=== PATIENT | male | born 1965 | race Caucasian/White ===

== ENCOUNTER → 2021-06-15 | Outpatient (CLI) | payer OTHER ==
[~2021-06-15] MED LIST: IOHEXOL 300 MG/ML 75 ML VIAL. ONE
[2021-06-15] MEDS: IOHEXOL 300 MG/ML 75 ML VIAL. IV ONE (10:07)
--- NOTE | 2021-06-15 10:50 | RAD ---
INDICATION: Reason: GROSS HEMATURIA / Spl. Instructions: / History: COMPARISON: None. TECHNIQUE: Axial CT images were obtained through the abdomen and pelvis with and without intravenous contrast. One or more of the following individualized dose reduction techniques were utilized for this examinat ion: 1. Automated exposure control; 2. Adjustment of the mA and/or kV according to patient size; 3 . Use of iterative reconstruction technique. FINDINGS: Fat-containing inguinal hernias. Vascular: Calcific atherosclerosis. Hepatobiliary: Liver is low density which can be seen with fatty infiltration. Pancreas: No peripancreatic edema. Spleen: Spleen unremarkable. Renal/Bladder: No hydronephrosis. Lobulated renal contour. Tiny bilateral renal stones measuring up t o 2 mm on the right. No radiopaque obstructive ureter stone. Right-sided the urinary bladder there is a filling defect identified along the wall measuring 15 x 9 mm. Gastrointestinal: No bowel dilation to suggest obstruction. No periappendiceal inflammatory changes. Prominence the wall of the distal colon at the distal sigmoid and rectal region. Fat-containing umbil ical hernia. Degenerative changes the spine with multilevel central canal and neural foraminal stenosis. IMPRESSION: * Masslike structure along the right side of the urinary bladder wall. Differential considerations would include a bladder wall neoplasm with alternative possible cause including adherent blood clot. Further workup option includes cystoscopy with direct visualization given that a bladder wall neoplas m such as transitional cell carcinoma could have this appearance. * Liver is low density which can be seen with fatty infiltration. Electronically signed by: Andry Merlos MD (06/15/2021 10:48 AM) [id number]
== END ==
LOC: CT 09:38
PROVIDERS: ATTEND Urology
DX: K40.90 Unilateral inguinal hernia, without obstruction or gangrene, not specified as recurrent (principal); N20.0 Calculus of kidney; K42.9 Umbilical hernia without obstruction or gangrene; R93.41 Abnormal radiologic findings on diagnostic imaging of renal pelvis, ureter, or bladder; I70.90 Unspecified atherosclerosis; R31.0 Gross hematuria
CPT/HCPCS: 74178; Q9967